=== PATIENT | male | born 1975 | race Two or more races ===

== ENCOUNTER 2025-07-17 07:50 | Day surgery (SDC) | payer BC, SELFPAY ==
[2025-07-17] VITALS (9 sets, daily range): BP systolic 119–164; BP diastolic 79–98; PULSE 80–92; RESP 18–30; TEMP 36.2; O2SAT 95–98; BMI 47.4
[2025-07-17] MEDS: SODIUM CHLORIDE 0.9% 500 ML 500 ML 20 ML IV (08:13)
[2025-07-17] MEDS: MIDAZOLAM INJ 1 MG/ML VIAL 2 ML (ASD USE ONLY) 2 MG IVP (08:15)
[2025-07-17] MEDS: fentaNYL CIT INJ 50 mCg/ML AMP 2ML (ASD USE ONLY) IVP (08:15)
== END 2025-07-17 09:00 | disposition home or self-care (01) ==
PROVIDERS: PCP Internal Medicine Cardiovascular Disease; Referring Provider Surgery; Visit Provider Surgery
PROC: 0DBE8ZX Excision of Large Intestine, Via Natural or Artificial Opening Endoscopic, Diagnostic (ICD-10-PCS; CPT 45380; principal; 2025-07-17 08:30)
DX: Z12.11 Encounter for screening for malignant neoplasm of colon (principal); D12.4 Benign neoplasm of descending colon; K64.1 Second degree hemorrhoids; Z12.12 Encounter for screening for malignant neoplasm of rectum; E11.9 Type 2 diabetes mellitus without complications; I10 Essential (primary) hypertension; E66.9 Obesity, unspecified; Z79.899 Other long term (current) drug therapy; Z68.42 Body mass index [BMI] 45.0-49.9, adult
CPT/HCPCS: 45385; A4217; A4649; J1200; J2250; J3010; J7999